=== PATIENT | female | born 1990 ===

== ENCOUNTER 2022-05-04 11:39 | Outpatient (CLI) | payer OTHER | END 2022-05-04 13:00 | disposition home or self-care (01) | LOC: PRENATAL 11:39 | PROVIDERS: ATTEND Obstetrics & Gynecology Maternal & Fetal Medicine | DX: O35.3XX0 Maternal care for (suspected) damage to fetus from viral disease in mother, not applicable or unspecified (principal); O35.0XX0 Maternal care for (suspected) central nervous system malformation in fetus, not applicable or unspecified; Z3A.20 20 weeks gestation of pregnancy ==

== ENCOUNTER 2022-09-14 21:55 | Inpatient (IN) | payer OTHER ==
[~2022-09-14] VITALS: Ht 152.4 cm; Wt 68.5 kg
[2022-09-14] MEDS ORDERED: PRENATAL DHA200 MG PO (23:52)
== END 2022-09-17 17:09 | disposition home or self-care (01) | DRG 807 ==
LOC: LDR 21:55 → OB/GYN 21:55
PROVIDERS: ADMIT Obstetrics & Gynecology; ATTEND Obstetrics & Gynecology
PROC: 4A1HXCZ Monitoring of Products of Conception, Cardiac Rate, External Approach (ICD-10-PCS; 2022-09-14)
PROC: 10E0XZZ Delivery of Products of Conception, External Approach (ICD-10-PCS; principal; 2022-09-15)
PROC: 0W8NXZZ Division of Female Perineum, External Approach (ICD-10-PCS; 2022-09-15)
DX: O80 Encounter for full-term uncomplicated delivery (principal); Z37.0 Single live birth; Z3A.39 39 weeks gestation of pregnancy; Z20.822 Contact with and (suspected) exposure to COVID-19